=== PATIENT | female | born 1980 | race Caucasian/White ===

== ENCOUNTER 2024-04-13 22:02 | Outpatient (CLI) | payer OTHER ==
--- NOTE | 2024-04-13 23:07 | Ultrasound Report ---
PROCEDURE: Duplex Ext Veins Left INDICATIONS: THROMBOPHLEBITIS TECHNIQUE: Real-time imaging, as well as color and pulse Doppler interrogation, were performed of the lower extr emity deep veins from the inguinal ligament to the popliteal fossa. Attempted visualization of the ca lf veins was performed. COMPARISON: None. FINDINGS: The deep veins are normally compressible, and free of intraluminal thrombus. Color and pu lse Doppler demonstrate normal phasic intraluminal flow. There is normal augmentation response to di stal compression maneuver. Positive superficial venous thrombosis involving a varicose vein in the proximal medial calf. IMPRESSION: No deep venous thrombosis of the visualized lower extremity. Superficial venous thrombosis involving a varicose vein in the proximal medial calf. Agree with preliminary interpretation provided to the ordering provider by the ultrasound technologis t. Reviewed by: Bryant Mayer MD on 04/13/2024 11:06 PM PDT Approved by: Bryant Mayer MD on 04/13/2024 11:06 PM PDT Station ID: [id number]
== END 2024-04-13 22:03 | disposition home or self-care (01) ==
LOC: DI 22:02
PROVIDERS: ATTEND Family Medicine
DX: I80.02 Phlebitis and thrombophlebitis of superficial vessels of left lower extremity (principal)